=== PATIENT | male | born 1970 | race Caucasian/White ===

== ENCOUNTER 2020-06-03 11:44 | Outpatient (REF) | payer OTHER, SELFPAY ==
[2020-06-03 14:06] LABS: MANUAL DIFF FLAG NO
[2020-06-03 14:10] LABS: Basophils Percent Auto 0.5 % (0-2); Eosinophils Absolute Auto 0.1 X10*3/uL (0.0-0.4); Eosinophils Percent Auto 1.6 % (0-4); Hematocrit 42.4 % (42-52); Hemoglobin 14.3 g/dl (14.0-18.0); Imm Gran Abs Auto 0.02 X10*3/uL (0.00-0.03); Imm Gran Pct Auto 0.2 % (0.0-0.4); Lymphocytes Absolute Auto 2.3 X10*3/uL (1.2-4.9); Lymphocytes Percent Auto 27.5 % (20-40); Mean Corpuscular HGB Conc 33.7 g/dl (31.0-36.0); Mean Corpuscular Hemoglobin 29.1 pg (27.0-33.0); Mean Corpuscular Volume 86.4 fL (80-98); Monocytes Absolute Auto 0.5 X10*3/uL (0.1-1.2); Neutrophils Absolute Auto 5.3 X10*3/uL (2.0-8.3); Neutrophils Percent Auto 64.2 % (45-73); Platelet Count 294 X10*3/uL (160-400); Red Blood Count 4.91 X10*6/uL (4.60-5.80); Red Cell Distribution Width 12.7 % (11.0-16.0); White Blood Count 8.3 X10*3/uL (4.8-10.8)
[2020-06-03 14:51] LABS: Alanine Aminotransferase 19 U/L (0-40); Albumin Level 5.1 g/dL (3.5-5.0); Alkaline Phosphatase 67 U/L (39-117); Anion Gap 17 (12-20); Aspartate Amino Transferase 24 U/L (5-37); Bilirubin Total 1.2 mg/dL (0.0-1.0); Blood Urea Nitrogen 31 mg/dL (9-16); Calcium 9.7 mg/dL (8.4-10.2); Carbon Dioxide 25 mmol/L (22-29); Chloride 100 mmol/L (96-108); Cholesterol 264 mg/dL; Estimated Glomerular Filt Rate 45; Glucose Fasting 84 mg/dL (60-99); HDL Cholesterol 40 mg/dL; LDL Cholesterol Calculated 207 mg/dl; Potassium 4.7 mmol/l (3.3-5.1); Sodium 137 mmol/L (135-145); Total Protein 8.3 g/dL (6.5-8.0); Triglycerides 89 mg/dL
== END 2020-06-03 11:45 | disposition home or self-care (01) ==
LOC: HO.HMGCLDS 11:44
PROVIDERS: PCP Internal Medicine; Visit Provider Internal Medicine
DX: E78.2 Mixed hyperlipidemia (principal); I10 Essential (primary) hypertension
CPT/HCPCS: 36415; 80053; 80061; 85025

== ENCOUNTER 2020-06-10 10:49 | Outpatient (REF) | payer OTHER, SELFPAY ==
--- NOTE | 2020-06-10 11:11 | XR_ITS ---
EXAMINATION: XR KNEE, RIGHT CLINICAL INFORMATION: Right knee pain. COMPARISON: None TECHNIQUE: Four views of the right knee. FINDINGS: Mild tricompartmental degenerative joint changes are seen most pronounced in the medial femoral-tibial compartment. There is no acute fracture or dislocation. There is no joint effusion. Mild to moderate prepatellar soft tissue swelling is seen, most pronounced anterior to the patellar tendon. XR/XR knee RT 4V IMPRESSION: 1. Mild tricompartmental degenerative joint changes most consistent with osteoarthritis. 2. Mild to moderate prepatellar soft tissue swelling.
== END 2020-06-10 10:50 | disposition home or self-care (01) ==
LOC: HO.HMGCX 10:49
PROVIDERS: PCP Internal Medicine; Visit Provider Internal Medicine
DX: M25.561 Pain in right knee (principal)
CPT/HCPCS: 73564

== ENCOUNTER 2020-07-25 06:13 | Outpatient (REF) | payer OTHER, SELFPAY ==
[2020-07-25 11:53] LABS: Alanine Aminotransferase 15 U/L (0-40); Albumin Level 4.9 g/dL (3.5-5.0); Alkaline Phosphatase 63 U/L (39-117); Anion Gap 15 (12-20); Aspartate Amino Transferase 19 U/L (5-37); Blood Urea Nitrogen 19 mg/dL (9-16); Calcium 8.8 mg/dL (8.4-10.2); Carbon Dioxide 25 mmol/L (22-29); Chloride 103 mmol/L (96-108); Cholesterol 237 mg/dL; Estimated Glomerular Filt Rate 55; Glucose Fasting 90 mg/dL (60-99); HDL Cholesterol 33 mg/dL; LDL Cholesterol Calculated 165 mg/dl; Potassium 4.3 mmol/l (3.3-5.1); Sodium 139 mmol/L (135-145); Total Protein 7.9 g/dL (6.5-8.0); Triglycerides 197 mg/dL
== END 2020-07-25 06:14 | disposition home or self-care (01) ==
LOC: HO.HMGCLDS 06:13
PROVIDERS: PCP Internal Medicine; Visit Provider Internal Medicine
DX: E78.5 Hyperlipidemia, unspecified (principal); I10 Essential (primary) hypertension; Z00.00 Encounter for general adult medical examination without abnormal findings; Z53.20 Procedure and treatment not carried out because of patient's decision for unspecified reasons
CPT/HCPCS: 80048; 80053; 80061

== ENCOUNTER 2020-10-19 06:23 | Outpatient (REF) | payer OTHER, SELFPAY ==
[2020-10-19 11:59] LABS: Alanine Aminotransferase 20 U/L (0-40); Albumin Level 4.7 g/dL (3.5-5.0); Alkaline Phosphatase 66 U/L (39-117); Anion Gap 13 (12-20); Aspartate Amino Transferase 21 U/L (5-37); Bilirubin Total 1.2 mg/dL (0.0-1.0); Blood Urea Nitrogen 22 mg/dL (9-16); Calcium 9.3 mg/dL (8.4-10.2); Carbon Dioxide 26 mmol/L (22-29); Chloride 104 mmol/L (96-108); Cholesterol 169 mg/dL; Estimated Glomerular Filt Rate 57; Glucose Fasting 90 mg/dL (60-99); HDL Cholesterol 36 mg/dL; LDL Cholesterol Calculated 109 mg/dl; Potassium 3.6 mmol/L (3.3-5.1); Sodium 139 mmol/L (135-145); Total Protein 7.8 g/dL (6.5-8.0); Triglycerides 124 mg/dL
[2020-10-19 12:01] LABS: Prostate Specific Antigen Scr 0.24 ng/mL (<0.05-4.0)
== END 2020-10-19 06:24 | disposition home or self-care (01) ==
LOC: HO.HMGCLDS 06:23
PROVIDERS: PCP Internal Medicine; Visit Provider Internal Medicine
DX: Z00.00 Encounter for general adult medical examination without abnormal findings (principal); I10 Essential (primary) hypertension; E78.5 Hyperlipidemia, unspecified
CPT/HCPCS: 36415; 80053; 80061; 84153

== ENCOUNTER 2021-02-27 08:12 | Outpatient (REF) | payer OTHER, SELFPAY ==
[2021-02-27 11:41] LABS: Hematocrit 43.8 % (42-52); Hemoglobin 14.8 g/dl (14.0-18.0); Mean Corpuscular HGB Conc 33.8 g/dl (31.0-36.0); Mean Corpuscular Hemoglobin 29.1 pg (27.0-33.0); Mean Corpuscular Volume 86.1 fL (80-98); Mean Platelet Volume 10.6 fL (9.4-12.4); Platelet Count 270 X10*3/uL (160-400); Red Blood Count 5.09 X10*6/uL (4.60-5.80); Red Cell Distribution Width 13.2 % (11.0-16.0); White Blood Count 8.4 X10*3/uL (4.8-10.8)
[2021-02-27 11:51] LABS: Alanine Aminotransferase 24 U/L (0-40); Albumin Level 4.8 g/dL (3.5-5.0); Alkaline Phosphatase 67 U/L (39-117); Anion Gap 14 (12-20); Aspartate Amino Transferase 24 U/L (5-37); Bilirubin Total 0.8 mg/dL (0.0-1.0); Blood Urea Nitrogen 16 mg/dL (9-16); Calcium 9.9 mg/dL (8.4-10.2); Carbon Dioxide 28 mmol/L (22-29); Chloride 102 mmol/L (96-108); Cholesterol 226 mg/dL; Estimated Glomerular Filt Rate 54; Glucose Fasting 107 mg/dL (60-99); HDL Cholesterol 34 mg/dL; Potassium 4.2 mmol/L (3.3-5.1); Sodium 140 mmol/L (135-145); Total Protein 8.1 g/dL (6.5-8.0); Triglycerides 429 mg/dL
== END 2021-02-27 08:13 | disposition home or self-care (01) ==
LOC: HO.HMGCLDS 08:12
PROVIDERS: PCP Internal Medicine; Visit Provider Internal Medicine
DX: I10 Essential (primary) hypertension (principal); E78.5 Hyperlipidemia, unspecified
CPT/HCPCS: 36415; 80053; 80061; 85027

== ENCOUNTER 2021-05-31 06:06 | Outpatient (REF) | payer OTHER, SELFPAY ==
[2021-05-31 11:56] LABS: Cholesterol 159 mg/dL; HDL Cholesterol 29 mg/dL; LDL Cholesterol Calculated 95 mg/dl; Triglycerides 177 mg/dL
== END 2021-05-31 06:07 | disposition home or self-care (01) ==
LOC: HO.HMGCLDS 06:06
PROVIDERS: PCP Internal Medicine; Visit Provider Internal Medicine
DX: E78.5 Hyperlipidemia, unspecified (principal)
CPT/HCPCS: 36415; 80061

== ENCOUNTER 2021-09-01 14:54 | Outpatient (REF) | payer OTHER, SELFPAY ==
[2021-09-01 16:19] LABS: Appearance Urine CLEAR; Color Urine YELLOW; Glucose Urine UA NEG (NEG); Leukocyte Esterase Urine NEG (NEG); Nitrite Urine NEG (NEG); Specific Gravity - Urine 1.025 (1.005-1.025); Urine Blood NEG (NEG); Urine Ketones NEG (NEG); Urine Protein NEG (NEG-TRACE)
[2021-09-01 16:22] LABS: Hematocrit 42.4 % (42.0-52.0); Hemoglobin 14.2 g/dl (14.0-18.0); Mean Corpuscular HGB Conc 33.5 g/dl (31.0-36.0); Mean Corpuscular Hemoglobin 28.6 pg (27.0-33.0); Mean Corpuscular Volume 85.5 fL (80.0-98.0); Mean Platelet Volume 10.9 fL (9.4-12.4); Platelet Count 281 X10*3/uL (160-400); Red Blood Count 4.96 X10*6/uL (4.60-5.80); Red Cell Distribution Width 12.9 % (11.0-16.0); White Blood Count 9.2 X10*3/uL (4.8-10.8)
[2021-09-01 16:44] LABS: Alanine Aminotransferase 31 U/L (0-40); Albumin Level 4.9 g/dL (3.5-5.0); Alkaline Phosphatase 66 U/L (39-117); Anion Gap 15 (12-20); Aspartate Amino Transferase 25 U/L (5-37); Bilirubin Total 0.9 mg/dL (0.0-1.0); Blood Urea Nitrogen 28 mg/dL (9-16); Calcium 10.1 mg/dL (8.4-10.2); Carbon Dioxide 25 mmol/L (22-29); Chloride 102 mmol/L (96-108); Cholesterol 214 mg/dL; Estimated Glomerular Filt Rate 40; Glucose Random 86 mg/dL (60-115); HDL Cholesterol 30 mg/dL; LDL Cholesterol Calculated 113 mg/dl; Potassium 4.6 mmol/L (3.3-5.1); Sodium 137 mmol/L (135-145); Total Protein 8.4 g/dL (6.5-8.0); Triglycerides 358 mg/dL
[2021-09-01 17:06] LABS: Prostate Specific Antigen Scr 0.17 ng/mL (<0.05-4.0)
== END 2021-09-01 14:55 | disposition home or self-care (01) ==
LOC: HO.HMGCLDS 14:54
PROVIDERS: PCP Internal Medicine; Visit Provider Internal Medicine
DX: Z00.00 Encounter for general adult medical examination without abnormal findings (principal); Z12.5 Encounter for screening for malignant neoplasm of prostate; E78.5 Hyperlipidemia, unspecified; I10 Essential (primary) hypertension
CPT/HCPCS: 36415; 80053; 80061; 81003; 84153; 85027

== ENCOUNTER 2022-12-24 09:43 | Outpatient (REF) | payer BC, SELFPAY ==
[2022-12-24 11:22] LABS: MANUAL DIFF FLAG NO
[2022-12-24 11:26] LABS: Appearance Urine Clear; Color Urine Yellow; Glucose Urine UA Negative (Negative); Leukocyte Esterase Urine Negative (Negative); Nitrite Urine Negative (Negative); Urine Blood Negative (Negative); Urine Ketones Negative (Negative); Urine Protein Negative (Neg-Trace)
[2022-12-24 11:29] LABS: Bacteria Urine None Seen (None Seen); Hyaline Casts Urine 0-2 /LPF (0-2); RBC Urine 0-2 /HPF (0-2); Squamous Epithelial Cell Urine 0-2 /HPF (0-2); WBC Urine 0-5 /HPF (0-5)
[2022-12-24 11:35] LABS: Basophils Absolute Auto 0.1 X10*3/uL (0.0-0.2); Basophils Percent Auto 0.7 % (0-2); Eosinophils Absolute Auto 0.2 X10*3/uL (0.0-0.4); Eosinophils Percent Auto 3.1 % (0-4); Hematocrit 41.8 % (42.0-52.0); Hemoglobin 14.2 g/dl (14.0-18.0); Lymphocytes Percent Auto 29.4 % (20-40); Mean Corpuscular Hemoglobin 28.3 pg (27.0-33.0); Mean Corpuscular Volume 83.3 fL (80.0-98.0); Mean Platelet Volume 10.4 fL (9.4-12.4); Monocytes Absolute Auto 0.4 X10*3/uL (0.1-1.2); Monocytes Percent Auto 5.8 % (2-11); Neutrophils Absolute Auto 4.1 x10*3/uL (2.0-8.3); Platelet Count 243 X10*3/uL (160-400); Red Blood Count 5.02 X10*6/uL (4.60-5.80); White Blood Count 6.7 X10*3/uL (4.8-10.8)
[2022-12-24 11:55] LABS: Alanine Aminotransferase 18 U/L (0-40); Albumin Level 4.4 g/dL (3.5-5.0); Alkaline Phosphatase 72 U/L (39-117); Anion Gap 10 (12-20); Aspartate Amino Transferase 17 U/L (5-37); Bilirubin Total 1.1 mg/dL (0.0-1.0); Blood Urea Nitrogen 14 mg/dL (9-16); Calcium 9.6 mg/dL (8.4-10.2); Carbon Dioxide 29 mmol/L (22-29); Chloride 105 mmol/L (96-108); Cholesterol 171 mg/dL; Estimated Glomerular Filt Rate > 60; Glucose Fasting 98 mg/dL (60-99); HDL Cholesterol 30 mg/dL; LDL Cholesterol Calculated 99 mg/dl; Potassium 4.3 mmol/L (3.3-5.1); Sodium 140 mmol/L (135-145); Total Protein 7.1 g/dL (6.5-8.0); Triglycerides 210 mg/dL
== END 2022-12-24 09:44 | disposition home or self-care (01) ==
LOC: HO.HMGCLDS 09:43
PROVIDERS: PCP Internal Medicine; Visit Provider Internal Medicine
DX: Z00.00 Encounter for general adult medical examination without abnormal findings (principal); Z12.5 Encounter for screening for malignant neoplasm of prostate; E78.5 Hyperlipidemia, unspecified; I10 Essential (primary) hypertension
CPT/HCPCS: 36415; 80053; 80061; 81001; 84153; 85025

== ENCOUNTER 2023-09-13 10:23 | Outpatient (REF) | payer BC, SELFPAY ==
[2023-09-13 13:08] LABS: MANUAL DIFF FLAG NO
[2023-09-13 13:43] LABS: Basophils Percent Auto 0.5 % (0-2); Eosinophils Absolute Auto 0.1 X10*3/uL (0.0-0.4); Eosinophils Percent Auto 1.7 % (0-4); Hematocrit 45.2 % (42.0-52.0); Hemoglobin 15.3 g/dl (14.0-18.0); Imm Gran Abs Auto 0.02 X10*3/uL (0.00-0.03); Imm Gran Pct Auto 0.3 % (0.0-0.4); Lymphocytes Absolute Auto 2.6 X10*3/uL (1.2-4.9); Mean Corpuscular HGB Conc 33.8 g/dl (31.0-36.0); Mean Corpuscular Hemoglobin 28.6 pg (27.0-33.0); Mean Corpuscular Volume 84.5 fL (80.0-98.0); Mean Platelet Volume 11.3 fL (9.4-12.4); Monocytes Absolute Auto 0.5 X10*3/uL (0.1-1.2); Monocytes Percent Auto 6.5 % (2-11); Neutrophils Absolute Auto 4.2 x10*3/uL (2.0-8.3); Platelet Count 254 X10*3/uL (160-400); Red Blood Count 5.35 X10*6/uL (4.60-5.80); Red Cell Distribution Width 13.4 % (11.0-16.0); White Blood Count 7.5 X10*3/uL (4.8-10.8)
[2023-09-13 14:12] LABS: Alanine Aminotransferase 21 U/L (0-40); Albumin Level 4.7 g/dL (3.5-5.0); Alkaline Phosphatase 69 U/L (39-117); Anion Gap 14 (12-20); Aspartate Amino Transferase 25 U/L (5-37); Bilirubin Total 1.2 mg/dL (0.0-1.0); Blood Urea Nitrogen 31 mg/dL (9-16); Calcium 9.7 mg/dL (8.4-10.2); Carbon Dioxide 25 mmol/L (22-29); Chloride 104 mmol/L (96-108); Cholesterol 192 mg/dL (<200); Estimated Glomerular Filt Rate 55; Glucose Fasting 91 mg/dL (60-99); HDL Cholesterol 37 mg/dL (>40); LDL Cholesterol Calculated 137 mg/dL (<100); Potassium 3.8 mmol/L (3.3-5.1); Sodium 139 mmol/L (135-145); Total Protein 8.1 g/dL (6.5-8.0); Triglycerides 93 mg/dL (<150)
== END 2023-09-13 10:24 | disposition home or self-care (01) ==
LOC: HO.HMGCLNP 10:23
PROVIDERS: PCP Internal Medicine; Visit Provider Internal Medicine
DX: E78.5 Hyperlipidemia, unspecified (principal); I10 Essential (primary) hypertension
CPT/HCPCS: 80053; 80061; 85025

== ENCOUNTER 2023-09-16 07:44 | Outpatient (AMB) | payer BC, SELFPAY ==
--- NOTE | 2023-09-16 08:09 | MHC.PC.OV ---
Vital Signs 09/16/23 08:10 Height 5 ft 6 in Weight 214 lb BMI 34.5 BP 130/82 Blood Pressure Location Lt brachial Position Sitting Pulse 71 Pulse Source Pulse Oximeter Pulse Oximetry (%) 99 Oxygen Delivery Method Room Air Intake Visit Reasons: Annual PE Intake Note: Pt is here today for PE. Allergies No Known Allergies Allergy (Verified 09/16/23 08:13) Medication List - Last Reconciled 09/16/23 by Rowena Barnes MD amlodipine 10 mg PO DAILY lisinopril 20 mg PO DAILY lisinopril-hydrochlorothiazide 20-25 mg 1 tab PO DAILY metoprolol succinate ER 100 mg PO DAILY pravastatin 20 mg PO DAILY Tobacco use date assessed: 09/16/23 Dental Screening Dental Screen Date: 09/16/23 Did you have a dental visit in the last 12 months?: Yes Did you have a dental problem in the last 6 months where you did not have access to dental care?: No Was dental information given to patient?: Patient has dentist HPI Annual PE HPI Details Pt presents for PE. PFS Medical History (Updated 09/16/23 @ 08:36 by Rowena Barnes MD) Colonoscopy refused Annual physical exam Hyperlipemia Knee pain HTN (hypertension) Nephrolithiasis Surgical History History of appendectomy Family History Father HTN (hypertension) Mother HTN (hypertension) Social History Housing: House Alcohol intake: current Alcohol intake frequency: holidays/special occasions only Patient Tobacco Use Status: Never used Tobacco e-Cigarette/Vaping Use: Never Used Current occupational status: employed Cognitive needs: No Hearing needs: No Vision needs: No Questionnaire PHQ-9 Over the last 2 weeks, how often have you been bothered by any of the following problems? 1. Little interest or pleasure in doing things: not at all 2. Feeling down, depressed, or hopeless: not at all 3. Trouble falling or staying asleep, or sleeping too much: not at all 4. Feeling tired or having little energy: not at all 5. Poor appetite or overeating: not at all 6. Feeling bad about yourself - or that you are a failure or have let yourself or your family down: not at all 7. Trouble concentrating on things, such as reading the newspaper or watching television: not at all 8. Moving or speaking so slowly that other people could have noticed. Or the opposite - being so fidgety or restless that you have been moving around a lot more than usual: not at all 9. Thoughts that you would be better off or of hurting yourself in some way: not at all Total score: 0 Depression Screening Interpretation: Negative Depression Screening Done: Yes Source: Developed by Drs. Rocky Bocanegra, Tonie Valdovinos, Bryce Polanco and colleagues, with an educational hernandez from [employer]. Thrive Questionnaire Date Thrive assessed: 12/26/22 AUDIT C Alcohol Use Questionnaire (AUDIT-C) 1. How often do you have a drink containing alcohol?: Never 3. How often do you have six or more drinks on one occasion?: Never Total Score: 0 HUGO-7 AMB Questionnaire HUGO-7 Date HUGO - 7 assessed: 09/16/23 Feeling nervous, anxious, or on edge: 0 = Not at all Not being able to stop or control worryin = Not at all Worrying too much about different things: 0 = Not at all Trouble relaxin = Not at all Being so restless that it is hard to sit still: 0 = Not at all Becoming easily annoyed or irritable: 0 = Not at all Feeling afraid as if something awful might happen: 0 = Not at all Total HUGO-7 score (0-4 normal; 5-9 mild; 10-14 moderate; 15-21 severe): 0 Source: Developed by Drs. Rocky Bocanegra, Tonie Valdovinos, Bryce Polanco and colleagues, with an educational hernandez from [employer]. Review of Systems Const All systems reviewed & are unremarkable except as noted in HPI and below Reports no additional complaints Eyes Reports no additional complaints ENT Reports no additional complaints Card Reports no additional complaints Resp Reports no additional complaints GI Reports no additional complaints Reports no additional complaints Physical exam (Primary Care) Vital Signs: Last Vital Signs Pulse 71 09/16/23 08:10 BP 130/82 09/16/23 08:10 Pulse Ox 99 09/16/23 08:10 Oxygen Delivery Method Room Air 09/16/23 08:10 BMI result Body Mass Index 34.5 Tobacco/Smoking Status: Tobacco use Status Tobacco use date assessed 09/16/23 09/16/23 08:17 Patient Tobacco Use Status Never used Tobacco 09/16/23 08:17 e-Cigarette/Vaping Use Never Used 09/16/23 08:09 PHQ-9: PHQ-9 Score PHQ-9: Total score 0 09/16/23 08:17 Depression Screening Interpretation: Negative Thrive Assessment: Date of Thrive Assessment Date Thrive assessed 12/26/22 09/16/23 08:09 Const General: no acute distress HENMT Head: Yes normal to inspection Ears: hearing grossly normal bilaterally Face and sinus: Yes normal facial exam Mouth: Normal oral and palatal mucosa present Throat: Yes posterior oropharynx normal Eyes General: appearance normal, both eyes and all related structures Neck Neck: Yes no lymphadenopathy and Yes supple Resp Effort & Inspection: normal respiratory effort Auscultation: clear to auscultation bilaterally Cardio Rhythm: regular rhythm Heart sounds: S1 normal heart sound present, S2 normal heart sound present and Murmur heart sound present systolic II/ GI Inspection: Yes normal to inspection Palpation (GI): Soft to palpation Percussion: Yes normal to percussion Auscultation: normal bowel sounds Assessment and Plan Assessment & Plan (1) Annual physical exam: Code(s): Z00.00 - Encounter for general adult medical examination without abnormal findings Plan: WELL-BALANCED DIET REGULAR PHYSICAL ACTIVITY DISCUSSED WITH THE PATIENT. HE HAD NEGATIVE COLOGUARD LAST YEAR (2) HTN (hypertension): Comment: BP goal less than 130/80 Code(s): I10 - Essential (primary) hypertension Plan: Continue current medications increase physical activity low-sodium diet, follow-up in 6 months (3) Heart murmur: Code(s): R01.1 - Cardiac murmur, unspecified Plan: Obtain echocardiogram to evaluate Orders: Orders Comprehensive [place]. Panel Fast 6 Months I10 - Essential (primary) hypertension, R01.1 - Cardiac murmur, unspecified, Z00.00 - Encounter for general adult medical examination without abnormal findings UA w Microscopic 6 Months I10 - Essential (primary) hypertension, R01.1 - Cardiac murmur, unspecified, Z00.00 - Encounter for general adult medical examination without abnormal findings PSA,Total (Free>4and<10) 6 Months I10 - Essential (primary) hypertension, R01.1 - Cardiac murmur, unspecified, Z00.00 - Encounter for general adult medical examination without abnormal findings Lipid Panel 6 Months I10 - Essential (primary) hypertension, R01.1 - Cardiac murmur, unspecified, Z00.00 - Encounter for general adult medical examination without abnormal findings CA echo transthoracic complete Today R01.1 - Cardiac murmur, unspecified Medications: Refilled amlodipine 10 mg PO DAILY 90 tabs 3RF pravastatin 20 mg PO DAILY 90 tabs 3RF lisinopril Take with lisinopril with hydrochlorothiazide 20/25 20 mg PO DAILY 90 tabs 3RF lisinopril-hydrochlorothiazide 20-25 mg take with Lisinopril 20 mg 1 tab PO DAILY 90 tabs 3RF metoprolol succinate ER 100 mg PO DAILY 90 tabs 3RF Coding Level of Care Code Est Pt Prev Care 40-64y(55506) Diagnoses Annual physical exam Z00.00 HTN (hypertension) I10 Heart murmur R01.1
[2023-09-16 08:10] VITALS: BP 130/82; PULSE 71; O2SAT 99; BMI 34.5
== END 2023-09-16 08:56 | disposition home or self-care (01) ==
PROVIDERS: PCP Internal Medicine; Visit Provider Internal Medicine
DX: Z00.00 Encounter for general adult medical examination without abnormal findings (principal); I10 Essential (primary) hypertension; R01.1 Cardiac murmur, unspecified
CPT/HCPCS: 99396

== ENCOUNTER 2023-12-13 09:26 | Outpatient (AMB) | payer BC, SELFPAY ==
--- NOTE | 2023-12-13 09:27 | A.OFFPC_ITS ---
Vital Signs 12/13/23 09:30 Height 5 ft 6 in Weight 214 lb BMI 34.5 BP 134/80 Blood Pressure Location Lt brachial Position Sitting Pulse 74 Pulse Source Pulse Oximeter Pulse Oximetry (%) 97 Oxygen Delivery Method Room Air Intake Visit Reasons: chronic cough Intake Note: Pt is here today for a sick visit. Pt c/o swelling in his lower legs. Allergies No Known Allergies Allergy (Verified 12/13/23 09:31) Medication List - Last Reconciled 12/13/23 by Rowena Barnes MD amlodipine 5 mg (1/2 x 10 mg) PO DAILY lisinopril 20 mg PO DAILY lisinopril-hydrochlorothiazide 20-25 mg 1 tab PO DAILY metoprolol succinate ER 100 mg PO DAILY pravastatin 20 mg PO DAILY triamterene 50 mg PO DAILY Tobacco use date assessed: 12/13/23 Dental Screening Dental Screen Date: 09/16/23 HPI chronic cough HPI Details Pt patient presents complaining of lower extremities swelling worse at the end of the day since he started working more hours, sitting or standing for prolonged time. He denies dyspnea on exertion PND orthopnea wheezing. patient has intermittent chronic dry cough, tickle like in the back of his throat very rarely. [facility] Medical History Colonoscopy refused Annual physical exam Hyperlipemia Knee pain HTN (hypertension) Nephrolithiasis Surgical History History of appendectomy Family History Father HTN (hypertension) Mother HTN (hypertension) Social History Housing: House Alcohol intake: current Alcohol intake frequency: holidays/special occasions only Patient Tobacco Use Status: Never used Tobacco e-Cigarette/Vaping Use: Never Used service: No Current occupational status: employed Cognitive needs: No Hearing needs: No Vision needs: No Questionnaire Thrive Questionnaire Date Thrive assessed: 12/26/22 HUGO-7 AMB Questionnaire HUGO-7 Date HUGO - 7 assessed: 09/16/23 Source: Developed by Drs. Rocky Bocanegra, Tonie Valdovinos, Bryce Polanco and colleagues, with an educational hernandez from [employer]. Review of Systems Const All systems reviewed & are unremarkable except as noted in HPI and below Reports no additional complaints Eyes Reports no additional complaints ENT Reports no additional complaints Card Reports no additional complaints Resp Reports no additional complaints GI Reports no additional complaints Reports no additional complaints Physical exam (Primary Care) Vital Signs: Last Vital Signs Pulse 74 12/13/23 09:30 BP 134/80 12/13/23 09:30 Pulse Ox 97 12/13/23 09:30 Oxygen Delivery Method Room Air 12/13/23 09:30 BMI result Body Mass Index 34.5 Tobacco/Smoking Status: Tobacco use Status Tobacco use date assessed 12/13/23 12/13/23 09:33 Patient Tobacco Use Status Never used Tobacco 12/13/23 09:33 e-Cigarette/Vaping Use Never Used 12/13/23 09:33 Thrive Assessment: Date of Thrive Assessment Date Thrive assessed 12/26/22 12/13/23 09:33 Const General: no acute distress HENMT Head: Yes normal to inspection Ears: hearing grossly normal bilaterally Mouth: Normal oral and palatal mucosa present Throat: Yes posterior oropharynx normal Neck Neck: Yes supple Resp Effort & Inspection: normal respiratory effort Auscultation: clear to auscultation bilaterally Cardio Rhythm: regular rhythm Heart sounds: S1 normal heart sound present and S2 normal heart sound present GI Inspection: Yes normal to inspection Palpation (GI): Soft to palpation Percussion: Yes normal to percussion Auscultation: normal bowel sounds Assessment and Plan Assessment & Plan (1) HTN (hypertension): Comment: BP goal less than 130/80 Code(s): I10 - Essential (primary) hypertension Plan: Patient has lower extremity edema most likely secondary to high dose of amlodipine. He will decrease amlodipine to 5 mg a day and triamterene 50 mg will be added to his medications. Electrolytes will be checked in 1 week. Patient will follow-up in 1 month (2) Hyperlipemia: Code(s): E78.5 - Hyperlipidemia, unspecified Plan: Continue pravastatin (3) Dry cough: Code(s): R05.8 - Other specified cough Plan: Most likely secondary to PHAN inhibitor but patient does not want to change lisinopril to ARB Orders: Orders Basic Metabolic Panel 1 Week Medications: New triamterene 50 mg PO DAILY 30 caps 0RF Changed From amlodipine 10 mg PO DAILY 90 tabs 3RF To amlodipine 5 mg (1/2 x 10 mg) PO DAILY 90 tabs 3RF Coding Level of Care Code Est Pt Level 4 (70931) Diagnoses HTN (hypertension) I10 Hyperlipemia E78.5 Dry cough R05.8
[2023-12-13 09:30] VITALS: BP 134/80; PULSE 74; O2SAT 97; BMI 34.5
== END 2023-12-13 13:23 | disposition home or self-care (01) ==
PROVIDERS: PCP Internal Medicine; Visit Provider Internal Medicine
DX: I10 Essential (primary) hypertension (principal); E78.5 Hyperlipidemia, unspecified; R05.8 Other specified cough
CPT/HCPCS: 99214

== ENCOUNTER 2023-12-30 06:11 | Outpatient (REF) | payer BC, SELFPAY ==
[2023-12-30 10:51] LABS: Anion Gap 15 (12-20); Blood Urea Nitrogen 23 mg/dL (9-16); Calcium 9.5 mg/dL (8.4-10.2); Carbon Dioxide 23 mmol/L (22-29); Chloride 106 mmol/L (96-108); Estimated Glomerular Filt Rate 53; Glucose Random 103 mg/dL (60-115); Potassium 4.4 mmol/L (3.3-5.1); Sodium 140 mmol/L (135-145)
== END 2023-12-30 06:12 | disposition home or self-care (01) ==
LOC: HO.HMGCLDS 06:11
PROVIDERS: PCP Internal Medicine; Visit Provider Internal Medicine
DX: Z13.89 Encounter for screening for other disorder (principal)
CPT/HCPCS: 36415; 80048

== ENCOUNTER 2024-01-07 10:03 | Outpatient (AMB) | payer BC, SELFPAY ==
--- NOTE | 2024-01-07 10:14 | MHC.PC.OV ---
Vital Signs 01/07/24 10:21 Height 5 ft 6 in Weight 215 lb BMI 34.7 BP 130/82 Blood Pressure Location Lt brachial Position Sitting Pulse 73 Pulse Source Pulse Oximeter Pulse Oximetry (%) 100 Oxygen Delivery Method Room Air Intake Visit Reasons: follow up Intake Note: Pt is here today for a follow up visit on HTN med change and labs. Allergies No Known Allergies Allergy (Verified 01/07/24 10:21) Medication List - Last Reconciled 01/07/24 by Rowena Barnes MD amlodipine 5 mg (1/2 x 10 mg) PO DAILY lisinopril 20 mg PO DAILY lisinopril-hydrochlorothiazide 20-25 mg 1 tab PO DAILY metoprolol succinate ER 100 mg PO DAILY pravastatin 20 mg PO DAILY triamterene 50 mg PO DAILY Tobacco use date assessed: 01/07/24 Dental Screening Dental Screen Date: 09/16/23 HPI follow up HPI Details Patient presents for the follow-up of hypertension and hyperlipidemia. He noticed decreased lower extremity swelling since started taking 5 mg of amlodipine. [facility] Medical History Colonoscopy refused Annual physical exam Hyperlipemia Knee pain HTN (hypertension) Nephrolithiasis Surgical History History of appendectomy Family History Father HTN (hypertension) Mother HTN (hypertension) Social History Housing: House Alcohol intake: current Alcohol intake frequency: holidays/special occasions only Patient Tobacco Use Status: Never used Tobacco e-Cigarette/Vaping Use: Never Used service: No Current occupational status: employed Cognitive needs: No Hearing needs: No Vision needs: No Questionnaire Thrive Questionnaire Date Thrive assessed: 12/26/22 HUGO-7 AMB Questionnaire HUGO-7 Date HUGO - 7 assessed: 09/16/23 Source: Developed by Drs. Rocky Bocanegra, Tonie Valdovinos, Bryce Polanco and colleagues, with an educational hernandez from [employer]. Review of Systems Const All systems reviewed & are unremarkable except as noted in HPI and below Card Reports no additional complaints GI Reports no additional complaints Physical exam (Primary Care) Vital Signs: Last Vital Signs Pulse 73 01/07/24 10:21 BP 140/82 H 01/07/24 10:21 Pulse Ox 100 01/07/24 10:21 Oxygen Delivery Method Room Air 01/07/24 10:21 BMI result Body Mass Index 34.7 Tobacco/Smoking Status: Tobacco use Status Tobacco use date assessed 01/07/24 01/07/24 10:21 Patient Tobacco Use Status Never used Tobacco 01/07/24 10:15 e-Cigarette/Vaping Use Never Used 01/07/24 10:15 Thrive Assessment: Date of Thrive Assessment Date Thrive assessed 12/26/22 01/07/24 10:15 Const General: no acute distress HENMT Head: Yes normal to inspection Face and sinus: Yes normal facial exam Throat: Yes posterior oropharynx normal Neck Neck: Yes supple Resp Effort & Inspection: normal respiratory effort Auscultation: clear to auscultation bilaterally Cardio Rhythm: regular rhythm Heart sounds: S1 normal heart sound present and S2 normal heart sound present GI Inspection: Yes normal to inspection Assessment and Plan Assessment & Plan (1) HTN (hypertension): Comment: 10 mg of amlodipine cause leg edema Code(s): I10 - Essential (primary) hypertension Plan: Change metoprolol to bisoprolol 10 mg and continue the rest of the medications. Low-sodium diet regular physical activity discussed with the patient. Sleep study was recommended to rule out obstructive sleep apnea but patient declined. Return in March (2) Hyperlipemia: Code(s): E78.5 - Hyperlipidemia, unspecified Plan: Continue statin Medications: New amlodipine 5 mg PO DAILY 90 tabs 3RF bisoprolol fumarate 10 mg PO DAILY 90 tabs 2RF Discontinued amlodipine Discontinued Reason: Doctor's Order 5 mg (1/2 x 10 mg) PO DAILY 90 tabs 3RF metoprolol succinate ER Discontinued Reason: Doctor's Order 100 mg PO DAILY 90 tabs 3RF Coding Level of Care Code Est Pt Level 4 (98193) Diagnoses HTN (hypertension) I10 Hyperlipemia E78.5
[2024-01-07 10:21] VITALS: BP 130/82; PULSE 73; O2SAT 100; BMI 34.7
== END 2024-01-07 10:59 | disposition home or self-care (01) ==
PROVIDERS: PCP Internal Medicine; Visit Provider Internal Medicine
DX: I10 Essential (primary) hypertension (principal); E78.5 Hyperlipidemia, unspecified
CPT/HCPCS: 99214

== ENCOUNTER → 2024-02-17 08:45 | Outpatient (REF) | payer BC, SELFPAY ==
--- NOTE | 2024-02-17 08:48 | CA_ITS ---
Transthoracic Echocardiogram Patient (Last, First, Middle): Amador Marie, Gender: Male Date of : 1970 Age: 53 Procedure Date: 02/17/2024 Procedure Type: Transthoracic Echocardiogram Location: OP Height: 167.64 cm Weight: 97.52 kg BSA: 2.06 m2 Heart Rate: bpm BP: 150 / 86 mmHg Door Hanger: PEÑA Referring MD: Rowena Barnes MD Symptoms: R01.1 - Cardiac murmur, unspecified Study Quality: Adequate ECG Rhythm: Sinus Conclusions: - The left ventricular systolic function is normal. The calculated ejection fraction is 59% by biplane method. - No obvious valvular pathology seen on this study. Findings Left Ventricle Normal left ventricular cavity size. There is mildly increased left ventricular wall thickness. The left ventricular systolic function is normal. The calculated ejection fraction is 59% by biplane method. There is no evidence of regional wall motion abnormalities. Evidence suggests grade I (mild) diastolic dysfunction. Right Ventricle Normal right ventricular cavity size and systolic function. Atria Both atria are normal in size. Aortic Valve There is a normal trileaflet aortic valve. There is mild calcification of the aortic valve. There is no aortic valve stenosis. There is no aortic valve regurgitation. Mitral Valve The mitral valve appears normal. There is no mitral valve regurgitation. There is no mitral valve stenosis. Pulmonic Valve The pulmonic valve is likely normal. Tricuspid Valve There is trace tricuspid valve regurgitation. There is no evidence of pulmonary hypertension. Great Vessels The asc aorta and aortic arch are normal in size. Venous The inferior vena cava is normal in size and collapses greater than 50% with inspiration. Pericardium/Pleural There is no evidence of pericardial effusion. Prior Study Comparison No prior study available for comparison. Recommendations, Care & Conclusions No obvious valvular pathology seen on this study. Measurements 2D Linear Measurements IVSd: 1.22 0.6-0.9/0.6-1.0 cm LVIDd: 4.70 3.9-5.3/4.2-5.9 cm LVIDd Index: 2.28 2.4-3.2/2.2-3.1 cm/m2 LVIDs: 2.88 2.0-3.6 cm LVPWd: 1.08 0.7-1.1 cm LA Diam: 4.70 2.7-3.8/3.0-4.0 cm LAIDs Index: 2.28 1.5-2.3 cm/m2 LV Mass: 248.74 67-162/88-224 g LV Mass Index: 120.75 43-95/49-115 g/m2 LVOT Diam: 2.20 3.0+(-)1.3 cm 2D Systolic Function EF 4C: 55.80 >55% EF 2C: 64.10 >55% EF BiP: 58.90 >55% Mitral Valve MV Pk E: 0.70 MV PK A: 0.88 MV Decel Time: 262.00 E/A: 0.80 E'Lateral: 7.07 E'Medial: 5.98 E/E' Med: 11.80 E/E' Lat: 9.90 PHT: 77.00 MVA PHT: 2.86 Decel [place]: 2.68 Aortic Valve AoV Pk Carlos Alberto: 1.78 AoV Mn Carlos Alberto: 1.23 AoV VTI: 0.37 AoV Pk Grad: 13.00 Aov Mn Grad: 7.00 AMANDA Cont.VTI: 2.49 LVOT LVOT Pk Carlos Alberto: 1.04 LVOT Mn Carlos Alberto: 0.70 LVOT VTI: 0.24 LVOT Pk Grad: 4.00 LVOT Mn Grad: 2.00 LVOT Diam: 2.20 LVOT Area: 3.80 Diastolic Function MV Pk E: 0.70 MV Pk A: 0.88 E/A: 0.80 E'Medial: 5.98 E/E' Med: 11.80 E' Laterial: 7.07 E/E' Lat: 9.90 Right Ventricle TAPSE (mm): 25.30 TVS' Carlos Alberto: 14.30 Tricuspid Valve TR Pk Carlos Alberto: 2.13 TR Pk Grad: 18.00 RA Press: 3.00 RVSP: 21.00 Great Vessels Aorta Sinus of Valsalva: 3.44 2.0-3.[address] [place]: 2.52 1.7-3.4 cm Ao Asc: 3.40 2.1-3.4 cm Ao Arch: 3.00 Updated in Other Vendor System with Status of Final Wicho Mistry MD electronically signed on 02/17/2024 12:31:23 PM with status of Final
== END ==
LOC: HO.CARD 08:45
PROVIDERS: PCP Internal Medicine; Visit Provider Internal Medicine
DX: R01.1 Cardiac murmur, unspecified (principal)
CPT/HCPCS: 93306

== ENCOUNTER → 2024-02-17 08:48 | Outpatient (BNV) | payer BC, SELFPAY | PROVIDERS: PCP Internal Medicine; Visit Provider Internal Medicine | DX: I35.8 Other nonrheumatic aortic valve disorders (principal); I51.89 Other ill-defined heart diseases | CPT/HCPCS: 93306 ==

== ENCOUNTER 2024-06-18 06:21 | Outpatient (REF) | payer BC, SELFPAY ==
[2024-06-18 10:36] LABS: Appearance Urine Clear; Color Urine Yellow; Glucose Urine UA Negative (Negative); Leukocyte Esterase Urine Negative (Negative); Nitrite Urine Negative (Negative); Specific Gravity - Urine 1.015 (1.005-1.025); Urine Blood Negative (Negative); Urine Ketones Negative (Negative); Urine Protein Negative (Neg-Trace)
[2024-06-18 10:45] LABS: Bacteria Urine None Seen (None Seen); Hyaline Casts Urine 0-2 /LPF (0-2); RBC Urine 0-2 /HPF (0-2); Squamous Epithelial Cell Urine 0-2 /HPF (0-2); WBC Urine 0-5 /HPF (0-5)
[2024-06-18 11:10] LABS: Alanine Aminotransferase 47 U/L (0-40); Albumin Level 4.5 g/dL (3.5-5.0); Alkaline Phosphatase 62 U/L (39-117); Anion Gap 13 (12-20); Aspartate Amino Transferase 37 U/L (5-37); Blood Urea Nitrogen 19 mg/dL (9-16); Calcium 9.8 mg/dL (8.4-10.2); Carbon Dioxide 24 mmol/L (22-29); Chloride 106 mmol/L (96-108); Cholesterol 213 mg/dL (<200); Estimated Glomerular Filt Rate 54; Glucose Fasting 109 mg/dL (60-99); HDL Cholesterol 33 mg/dL (>40); LDL Cholesterol Calculated 122 mg/dL (<100); Sodium 139 mmol/L (135-145); Total Protein 7.8 g/dL (6.5-8.0); Triglycerides 292 mg/dL (<150)
[2024-06-18 11:13] LABS: PSA,Total (Free>4and<10) 0.17 ng/mL (0.00-4.00)
== END 2024-06-18 06:22 | disposition home or self-care (01) ==
LOC: HO.HMGCLDS 06:21
PROVIDERS: PCP Internal Medicine; Visit Provider Internal Medicine
DX: Z00.00 Encounter for general adult medical examination without abnormal findings (principal); I10 Essential (primary) hypertension; R01.1 Cardiac murmur, unspecified; Z12.5 Encounter for screening for malignant neoplasm of prostate
CPT/HCPCS: 36415; 80053; 80061; 81001; 84153

== ENCOUNTER 2024-06-22 09:53 | Outpatient (AMB) | payer BC, SELFPAY ==
[2024-06-22 10:20] VITALS: BP 138/86; PULSE 78; O2SAT 96; BMI 35.5
--- NOTE | 2024-06-22 10:20 | A.OFFPC_ITS ---
Vital Signs 06/22/24 10:20 Height 5 ft 6 in Weight 220 lb BMI 35.5 BP 138/86 Blood Pressure Location Lt brachial Position Sitting Pulse 78 Pulse Source Pulse Oximeter Pulse Oximetry (%) 96 Oxygen Delivery Method Room Air Intake Visit Reasons: 6th month follow up Intake Note: Pt is here today for 6 months follow up visit on labs. Allergies No Known Allergies Allergy (Verified 01/07/24 10:21) Medication List - Last Reconciled 06/22/24 by Rowena Barnes MD amlodipine 5 mg PO DAILY bisoprolol fumarate 10 mg PO DAILY lisinopril 20 mg PO DAILY lisinopril-hydrochlorothiazide 20-25 mg 1 tab PO DAILY pravastatin 20 mg PO DAILY triamterene 50 mg PO DAILY Tobacco use date assessed: 06/22/24 Dental Screening Dental Screen Date: 09/16/23 HPI 6th month follow up HPI Details Patient presents for the follow-up on hypertension and hyperlipidemia. Patient gained 10 lb and has not been exercising regularly but is physically active at work. [facility] Medical History Colonoscopy refused Annual physical exam Hyperlipemia Knee pain HTN (hypertension) Nephrolithiasis Surgical History History of appendectomy Family History Father HTN (hypertension) Mother HTN (hypertension) Social History Housing: House Alcohol intake: current Alcohol intake frequency: holidays/special occasions only Patient Tobacco Use Status: Never used Tobacco e-Cigarette/Vaping Use: Never Used service: No Current occupational status: employed Cognitive needs: No Hearing needs: No Vision needs: No Questionnaire Thrive Questionnaire Date Thrive assessed: 12/26/22 HUGO-7 AMB Questionnaire HUGO-7 Date HUGO - 7 assessed: 09/16/23 Source: Developed by Drs. Rocky Bocanegra, Tonie Valdovinos, Bryce Polanco and colleagues, with an educational hernandez from [employer]. Review of Systems Const All systems reviewed & are unremarkable except as noted in HPI and below ENT Reports no additional complaints Card Reports no additional complaints Resp Reports no additional complaints GI Reports no additional complaints Physical exam (Primary Care) Vital Signs: Last Vital Signs Pulse 78 06/22/24 10:20 BP 138/86 06/22/24 10:20 Pulse Ox 96 06/22/24 10:20 Oxygen Delivery Method Room Air 06/22/24 10:20 BMI result Body Mass Index 35.5 Tobacco/Smoking Status: Tobacco use Status Tobacco use date assessed 06/22/24 06/22/24 10:49 Patient Tobacco Use Status Never used Tobacco 06/22/24 10:21 e-Cigarette/Vaping Use Never Used 06/22/24 10:21 Thrive Assessment: Date of Thrive Assessment Date Thrive assessed 12/26/22 06/22/24 10:21 Const General: no acute distress HENMT Face and sinus: Yes normal facial exam Neck Neck: Yes supple Resp Effort & Inspection: normal respiratory effort Auscultation: clear to auscultation bilaterally Cardio Rhythm: regular rhythm Heart sounds: S1 normal heart sound present and S2 normal heart sound present GI Inspection: Yes normal to inspection Palpation (GI): Soft to palpation Coding Level of Care Code Est Pt Level 3 (39114) Diagnoses HTN (hypertension) I10 Hyperlipemia E78.5 Assessment & Plan Assessment & Plan (1) HTN (hypertension): Comment: 10 mg of amlodipine cause leg edema Code(s): I10 - Essential (primary) hypertension Category: Medical Plan: Continue current medications decrease caloric intake increase physical activity discussed with the patient. (2) Hyperlipemia: Code(s): E78.5 - Hyperlipidemia, unspecified Category: Medical Plan: Continue statin follow-up in 3 months for physical with a fasting labs before Orders: Orders Comprehensive [place]. Panel Fast 3 Months E78.5 - Hyperlipidemia, unspecified, I10 - Essential (primary) hypertension TSH reflex Free T4 3 Months E78.5 - Hyperlipidemia, unspecified, I10 - Essential (primary) hypertension Complete Blood Count Auto Diff 3 Months E78.5 - Hyperlipidemia, unspecified, I10 - Essential (primary) hypertension Lipid Panel 3 Months E78.5 - Hyperlipidemia, unspecified, I10 - Essential (primary) hypertension PSA,Total (Free>4and<10) 3 Months E78.5 - Hyperlipidemia, unspecified, I10 - Essential (primary) hypertension UA w Microscopic 3 Months I10 - Essential (primary) hypertension
== END 2024-06-22 12:52 | disposition home or self-care (01) ==
PROVIDERS: PCP Internal Medicine; Visit Provider Internal Medicine
DX: I10 Essential (primary) hypertension (principal); E78.5 Hyperlipidemia, unspecified

== ENCOUNTER → 2024-06-22 09:53 | Outpatient (BNVA) | payer BC, SELFPAY | PROVIDERS: PCP Internal Medicine; Visit Provider Internal Medicine ==

== ENCOUNTER 2024-10-26 09:48 | Outpatient (REF) | payer BC, SELFPAY ==
[2024-10-26 13:20] LABS: Basophils Absolute Auto 0.1 X10*3/uL (0.0-0.2); Basophils Percent Auto 0.6 % (0-2); Eosinophils Absolute Auto 0.4 X10*3/uL (0.0-0.4); Eosinophils Percent Auto 3.9 % (0-4); Hematocrit 52.2 % (42.0-52.0); Hemoglobin 17.4 g/dl (14.0-18.0); Imm Gran Abs Auto 0.04 X10*3/uL (0.00-0.03); Imm Gran Pct Auto 0.4 % (0.0-0.4); Lymphocytes Absolute Auto 3.4 X10*3/uL (1.2-4.9); Lymphocytes Percent Auto 34.1 % (20-40); MANUAL DIFF FLAG SCAN; Mean Corpuscular HGB Conc 33.3 g/dl (31.0-36.0); Mean Corpuscular Hemoglobin 28.3 pg (27.0-33.0); Mean Corpuscular Volume 84.9 fL (80.0-98.0); Monocytes Absolute Auto 0.5 X10*3/uL (0.1-1.2); Monocytes Percent Auto 5.3 % (2-11); Neutrophils Absolute Auto 5.5 x10*3/uL (2.0-8.3); Neutrophils Percent Auto 55.7 % (45-73); PLT CLUMP 1; Red Blood Count 6.15 X10*6/uL (4.60-5.80); Red Cell Distribution Width 13.8 % (11.0-16.0); SCAN SMEAR FLAG 1
[2024-10-26 13:47] LABS: Appearance Urine Clear; Color Urine Yellow; Glucose Urine UA Negative (Negative); Leukocyte Esterase Urine Negative (Negative); Nitrite Urine Negative (Negative); PH 6.5 (5.0-9.0); Specific Gravity - Urine 1.015 (1.005-1.025); Urine Blood Negative (Negative); Urine Ketones Negative (Negative); Urine Protein Negative (Neg-Trace)
[2024-10-26 13:51] LABS: Bacteria Urine None Seen (None Seen); RBC Urine 0-2 /HPF (0-2); Squamous Epithelial Cell Urine 0-2 /HPF (0-2); WBC Urine 0-5 /HPF (0-5)
[2024-10-26 13:54] LABS: Mean Platelet Volume 11.4 fL (9.4-12.4); Platelet Count 231 X10*3/uL (160-400); SLIDE REVIEW VERIFIED; White Blood Count 9.9 X10*3/uL (4.8-10.8)
[2024-10-26 14:01] LABS: PSA,Total (Free>4and<10) 0.18 ng/mL (0.00-4.00)
[2024-10-26 14:16] LABS: Alanine Aminotransferase 31 U/L (0-40); Albumin Level 4.7 g/dL (3.5-5.0); Anion Gap 13 (12-20); Aspartate Amino Transferase 30 U/L (5-37); Bilirubin Total 1.4 mg/dL (0.0-1.0); Blood Urea Nitrogen 21 mg/dL (9-16); Calcium 9.8 mg/dL (8.4-10.2); Carbon Dioxide 23 mmol/L (22-29); Chloride 106 mmol/L (96-108); Cholesterol 210 mg/dL (<200); Estimated Glomerular Filt Rate 53; Glucose Fasting 93 mg/dL (60-99); HDL Cholesterol 30 mg/dL (>40); LDL Cholesterol Calculated 120 mg/dL (<100); Potassium 4.2 mmol/L (3.3-5.1); Sodium 138 mmol/L (135-145); TSH reflex Free T4 0.47 uIU/mL (0.32-4.0); Total Protein 8.6 g/dL (6.5-8.0); Triglycerides 300 mg/dL (<150)
[2024-10-26 14:26] LABS: Alkaline Phosphatase 74 U/L (39-117)
== END 2024-10-26 09:49 | disposition home or self-care (01) ==
LOC: HO.HMGCLDS 09:48
PROVIDERS: PCP Internal Medicine; Visit Provider Internal Medicine
DX: I10 Essential (primary) hypertension (principal); E78.5 Hyperlipidemia, unspecified; Z12.5 Encounter for screening for malignant neoplasm of prostate
CPT/HCPCS: 36415; 80053; 80061; 81001; 84153; 84443; 85025

== ENCOUNTER 2024-10-27 16:32 | Emergency (ER) | payer OTHER, BC, SELFPAY ==
[2024-10-27 17:07] VITALS: BP 185/81; PULSE 70; RESP 20; TEMP 36.5; O2SAT 99; BMI 35.2
--- NOTE | 2024-10-27 17:09 | ED.GENADULT ---
HPI - General Adult General Chief complaint: Wound/Laceration Stated complaint: Chin lac at work Time Seen by Provider: 10/27/24 21:05 Source: patient Mode of arrival: ambulatory Limitations: no limitations History of Present Illness ED Provider: Dr. Lea Peng HPI narrative: Patient comes to the emergency room complaining of a laceration to the chin. Patient states that he hit his chin in a piece of machinery at work. Patient denies being on blood thinners, denies loss of consciousness, denies any other injuries. patient states that he does not know if he is up-to-date with his Tdap but states that he would prefer not to get his Tdap as he does not like needles. However, he has an appointment pending with his PCP in the next week, and he will talk with his PCP about getting his booster Related Data Previous Rx's ?Medication ?Instructions ?Recorded lisinopril 20 mg tablet 20 mg PO DAILY #90 tabs 09/16/23 amlodipine 5 mg tablet 5 mg PO DAILY #90 tabs 01/07/24 bisoprolol fumarate 10 mg tablet 10 mg PO DAILY #90 tabs 01/07/24 triamterene 50 mg capsule 50 mg PO DAILY #90 caps 01/14/24 lisinopril 20 1 tab PO DAILY #90 tabs 10/20/24 mg-hydrochlorothiazide 25 mg tablet pravastatin 20 mg tablet 20 mg PO DAILY #90 tabs 10/20/24 Allergies Allergy/AdvReac Type Severity Reaction Status Date / Time No Known Allergies Allergy Verified 10/27/24 17:10 Review of Systems Review of Systems: Constitutional : No Weight loss, No Fever, No Chills, No Night Sweats, No Fatigue, No Malaise ENT/Mouth : No Hearing loss, No Ear Pain, No Nasal Congestion, No Sinus Pain, No Hoarseness, No sore throat, No Rhinorrhea, No Swallowing Difficulty Eyes: No Eye Pain, No Swelling, No Redness, No Foreign Body, No Discharge, No Vision Changes Cardiovascular : No Chest Pain, No SOB, No Dyspnea on Exertion, No Orthopnea, No Edema, No Palpitations Respiratory : No Cough, No Sputum, No Wheezing, No Smoke Exposure, No Dyspnea Gastrointestinal : No Nausea, No Vomiting, No Diarrhea, No Constipation, No abdominal Pain, No Hematochezia, No Melena Genitourinary : no irregular bleeding, No Dysuria, No Urinary Frequency, No Hematuria, No Urinary Incontinence, No Urgency, No Flank Pain, No Urinary Flow Changes, No Hesitancy Musculoskeletal : No joint pain, No Myalgias, No Joint Swelling Skin : complaining of a laceration to the chin Neuro : No Weakness, No Numbness, No Paresthesias, No Loss of Consciousness, No Dizziness, No Headache Psych : No Anxiety/Panic, No Depression, No SI/HI/AH/VH, No Social Issues, Heme/Lymph: No Bruising, No Bleeding,No Lymphadenopathy Endocrine : No Polyuria, No Polydipsia, No Temperature Intolerance [facility] Past Medical History Medical History Colonoscopy refused Annual physical exam Hyperlipemia Knee pain HTN (hypertension) Nephrolithiasis Surgical History History of appendectomy Family History Family History Father HTN (hypertension) Mother HTN (hypertension) Social History Social History Housing: House Alcohol intake: current Alcohol intake frequency: holidays/special occasions only Patient Tobacco Use Status: Never used Tobacco e-Cigarette/Vaping Use: Never Used Advance Directives: No Advance Directives Information Provided: Yes Do you have a plan to hurt others: No Plan service: No Current occupational status: employed Cognitive needs: No Hearing needs: No Vision needs: No Physical Exam ED Vital Signs: Vital Signs - 24 hr 10/27/24 17:07 Temperature 97.7 F Pulse Rate 70 Respiratory Rate 20 Blood Pressure 185/81 H Pulse Oximetry 99 Oxygen Delivery Method Room Air BMI result Body Mass Index 35.2 Const Other: Appearance: Alert. Oriented X3. No acute distress. Eyes: Pupils equal, round and reactive to light. ENT: Pharynx normal. Neck: Normal inspection. Neck supple. No lymph nodes noted. No crepitus CVS: Normal heart rate and rhythm. Pulses normal. Normal S1 and S2 Respiratory: No respiratory distress. Breath sounds normal. No Wheezing. No rales Abdomen: Soft and nontender. No rigidity. No distention. Skin: there is a 3.5 horizontal laceration to the chin Extremities: No lower extremity edema. No Lacerations. No Rash Neuro: Oriented X 3. No motor deficit. No sensory deficit. Moving all extremities. No slurred speech. CN 2 through 12 grossly intact Psych: calm, cooperative, normal affect Course Course Course Narrative: This is a rapid medical exam performed by Marci Bauer PA-C. Patient is a 54-year-old male who presents with chin laceration. While at work, he lacerated his chin on a piece of equipment. Tetanus up-to-date. No indication for labs or imaging. He will require repair. The patient is stable and can return to the waiting room pending his full medical assessment. Medications Administered Discontinued Medications Generic Name Dose Route Start Last Admin Trade Name Shanti PRN Reason Stop Dose Admin Lidocaine HCl 10 ml 10/27/24 21:10 10/27/24 21:16 Lidocaine Hcl 1 % Mpf 5 Ml Vial INFILTRATI 10/27/24 21:11 10 ml ONCE ONE Administration Procedures Laceration Laceration 1: Site: face Description: linear Depth: simple, single layer Local Anesthetic: lidocaine 1% Amount of anesthesia used (mL): 5 Pre-repair: wound explored Skin layer closed with: nylon Size (cm): 5-0 Number of sutures: 5 Technique: simple, interrupted Discharge Plan Discharge Clinical Impression: Laceration Patient Disposition: Home, Self-Care Instructions: Facial Laceration (ED), Care For Your Stitches (ED) Additional Instructions: Your stitches need to be removed in 7-10 days. It can be done at your primary care physician's office, urgent care or in the emergency room. Please follow-up with your primary care physician tomorrow. If you have any worsening or new symptoms, please return to the emergency room or call 911 Prescriptions: No Action triamterene 50 mg capsule 50 mg PO DAILY Qty: 90 1RF pravastatin 20 mg tablet 20 mg PO DAILY Qty: 90 0RF lisinopril-hydrochlorothiazide 20-25 mg tablet 1 tab PO DAILY Qty: 90 0RF Rx Instructions: take with Lisinopril 20 mg lisinopril 20 mg tablet 20 mg PO DAILY Qty: 90 3RF Rx Instructions: Take with lisinopril with hydrochlorothiazide 20/25 amlodipine 5 mg tablet 5 mg PO DAILY Qty: 90 3RF bisoprolol fumarate 10 mg tablet 10 mg PO DAILY Qty: 90 2RF Print Language: Palestinian
[2024-10-27] MEDS: Lidocaine HCl 1 % MPF 5 ML VIAL 10 ML INFILTRATI (21:16)
[2024-10-27 21:49] VITALS: BP 187/92; PULSE 74; RESP 20; TEMP 36.4; O2SAT 98
== END 2024-10-27 21:50 | disposition home or self-care (01) ==
PROVIDERS: Emergency Provider Emergency Medicine; PCP Internal Medicine
DX: S01.81XA Laceration without foreign body of other part of head, initial encounter (principal); W31.9XXA Contact with unspecified machinery, initial encounter; Y93.9 Activity, unspecified; Y92.89 Other specified places as the place of occurrence of the external cause; Y99.0 Civilian activity done for income or pay
CPT/HCPCS: 12013; 99282; 99284; J2003

== ENCOUNTER 2024-10-28 09:05 | Outpatient (AMB) | payer BC, SELFPAY ==
[2024-10-28 09:07] VITALS: BP 136/78; PULSE 71; RESP 18; TEMP 36.7; O2SAT 98; BMI 35.0
--- NOTE | 2024-10-28 09:07 | A.OFFPC_ITS ---
Vital Signs 10/28/24 09:07 Height 5 ft 6 in Weight 217 lb BMI 35.0 BP 136/78 Blood Pressure Location Lt brachial Position Sitting Respiration 18 Pulse 71 Pulse Source Pulse Oximeter Temp 98.0 F Temp Source Oral Pulse Oximetry (%) 98 Oxygen Delivery Method Room Air Intake Visit Reasons: Annual PE Intake Note: Pt is here today for PE. Allergies No Known Allergies Allergy (Verified 10/28/24 09:09) Medication List - Last Reconciled 10/28/24 by Rowena Barnes MD amlodipine 5 mg PO DAILY amlodipine 10 mg PO DAILY bisoprolol fumarate 10 mg PO DAILY lisinopril 20 mg PO DAILY lisinopril-hydrochlorothiazide 20-25 mg 1 tab PO DAILY pravastatin 40 mg PO BEDTIME triamterene 50 mg PO DAILY Tobacco use date assessed: 10/28/24 Dental Screening Dental Screen Date: 10/28/24 Did you have a dental visit in the last 12 months?: Yes Did you have a dental problem in the last 6 months where you did not have access to dental care?: No Was dental information given to patient?: Patient has dentist HPI Annual PE HPI Details Pt presents for PE. PFSH Medical History Colonoscopy refused Annual physical exam Hyperlipemia Knee pain HTN (hypertension) Nephrolithiasis Surgical History History of appendectomy Family History Father HTN (hypertension) Mother HTN (hypertension) Social History Housing: House Alcohol intake: current Alcohol intake frequency: holidays/special occasions only Patient Tobacco Use Status: Never used Tobacco e-Cigarette/Vaping Use: Never Used service: No Current occupational status: employed Cognitive needs: No Hearing needs: No Vision needs: No Questionnaire PHQ-9 Over the last 2 weeks, how often have you been bothered by any of the following problems? 1. Little interest or pleasure in doing things: not at all 2. Feeling down, depressed, or hopeless: not at all 3. Trouble falling or staying asleep, or sleeping too much: not at all 4. Feeling tired or having little energy: not at all 5. Poor appetite or overeating: not at all 6. Feeling bad about yourself - or that you are a failure or have let yourself or your family down: not at all 7. Trouble concentrating on things, such as reading the newspaper or watching television: not at all 8. Moving or speaking so slowly that other people could have noticed. Or the opposite - being so fidgety or restless that you have been moving around a lot more than usual: not at all 9. Thoughts that you would be better off or of hurting yourself in some way: not at all Total score: 0 Depression Screening Interpretation: Negative Depression Screening Done: Yes 50149 - PHQ-9 Billing: Yes Source: Developed by Drs. Rocky Bocanegra, Tonie Valdovinos, Bryce Polanco and colleagues, with an educational hernandez from [employer]. Thrive Questionnaire Date Thrive assessed: 10/28/24 I am a: Patient What is your living situation today?: I have a steady place to live Within the past 12 months, did the food you bought not last and you didn't have the money to get more?: Never true Within the past 12 months, did you worry whether your food would run out before you got money to buy more?: Never true Do you have trouble paying for medicines?: No Do you have trouble getting transportation to medical appointments?: No Do you have trouble paying your heating and electricity bill?: No Do you have trouble taking care of your child, family member or friend?: No Do you have trouble with day-to-day activities such as bathing, preparing meals, shopping, managing finances, etc.?: No Are you currently unemployed and looking for a job?: No Are you interested in more education?: No Please select the resources that you would like help with: None THRIVE Score: 0 AUDIT C Alcohol Use Questionnaire (AUDIT-C) 1. How often do you have a drink containing alcohol?: Never 3. How often do you have six or more drinks on one occasion?: Never Total Score: 0 HUGO-7 AMB Questionnaire HUGO-7 Date HUGO - 7 assessed: 10/28/24 Feeling nervous, anxious, or on edge: 0 = Not at all Not being able to stop or control worryin = Not at all Worrying too much about different things: 0 = Not at all Trouble relaxin = Not at all Being so restless that it is hard to sit still: 0 = Not at all Becoming easily annoyed or irritable: 0 = Not at all Feeling afraid as if something awful might happen: 0 = Not at all Total HUGO-7 score (0-4 normal; 5-9 mild; 10-14 moderate; 15-21 severe): 0 Source: Developed by Drs. Rocky Bocanegra, Tonie Valdovinos, Bryce Polanco and colleagues, with an educational hernandez from [employer]. HUGO-7 Assessment Billing HUGO-7 Assessment Tool: HUGO-7 Assessment 08338 Review of Systems Const All systems reviewed & are unremarkable except as noted in HPI and below Eyes Reports no additional complaints ENT Reports no additional complaints Card Reports no additional complaints Resp Reports no additional complaints GI Reports no additional complaints Reports no additional complaints Physical exam (Primary Care) Vital Signs: Last Vital Signs Temp 98.0 F 10/28/24 09:07 Pulse 71 10/28/24 09:07 Resp 18 10/28/24 09:07 BP 136/78 10/28/24 09:07 Pulse Ox 98 10/28/24 09:07 Oxygen Delivery Method Room Air 10/28/24 09:07 BMI result Body Mass Index 35.0 Tobacco/Smoking Status: Tobacco use Status Tobacco use date assessed 10/28/24 10/28/24 09:10 Patient Tobacco Use Status Never used Tobacco 10/28/24 09:10 e-Cigarette/Vaping Use Never Used 10/28/24 09:10 PHQ-9: PHQ-9 Score PHQ-9: Total score 0 10/28/24 09:23 Depression Screening Interpretation: Negative Thrive Assessment: Date of Thrive Assessment Date Thrive assessed 10/28/24 10/28/24 09:10 Const General: no acute distress HENMT Head: Yes normal to inspection Ears: hearing grossly normal bilaterally Mouth: Normal oral and palatal mucosa present Throat: Yes posterior oropharynx normal Eyes General: appearance normal, both eyes and all related structures Neck Neck: Yes no lymphadenopathy and Yes supple Resp Effort & Inspection: normal respiratory effort Auscultation: clear to auscultation bilaterally Cardio Rhythm: regular rhythm Heart sounds: S1 normal heart sound present and S2 normal heart sound present GI Inspection: Yes normal to inspection Palpation (GI): Soft to palpation Percussion: Yes normal to percussion Auscultation: normal bowel sounds Coding Level of Care Code Est Pt Prev Care 40-64y(65616) Diagnoses HTN (hypertension) I10 Hyperlipemia E78.5 Annual physical exam Z00.00 Additional Codes HUGO-7 Assessment Billing - HUGO-7 Assessment Tool: HUGO-7 Assessment 80130 ([id number]) PHQ-9 - 59675 - PHQ-9 Billing: Yes ([id number]) Assessment & Plan Assessment & Plan (1) HTN (hypertension): Code(s): I10 - Essential (primary) hypertension Category: Medical Plan: Increase amlodipine to 10 mg a day continue other medications follow-up in 1 month (2) Hyperlipemia: Code(s): E78.5 - Hyperlipidemia, unspecified Category: Medical Plan: Increase pravastatin to 40 mg a day. Low-cholesterol diet discussed with the patient (3) Annual physical exam: Code(s): Z00.00 - Encounter for general adult medical examination without abnormal findings Category: Medical Plan: Well-balanced diet regular exercise discussed with the patient. He had a negative Cologuard in 2022 Orders: Orders Lipid Panel 1 Month E78.5 - Hyperlipidemia, unspecified, I10 - Essential (primary) hypertension Comprehensive [place]. Panel Fast 1 Month E78.5 - Hyperlipidemia, unspecified, I10 - Essential (primary) hypertension Medications: New amlodipine 10 mg PO DAILY 90 tabs 0RF pravastatin 40 mg PO BEDTIME 90 tabs 3RF Discontinued amlodipine Discontinued Reason: Doctor's Order 5 mg PO DAILY 90 tabs 3RF pravastatin Discontinued Reason: Doctor's Order 20 mg PO DAILY 90 tabs 0RF
== END 2024-10-28 10:08 | disposition home or self-care (01) ==
LOC: HO.HMCC 09:06
PROVIDERS: PCP Internal Medicine; Visit Provider Internal Medicine
DX: I10 Essential (primary) hypertension (principal); E78.5 Hyperlipidemia, unspecified; Z00.00 Encounter for general adult medical examination without abnormal findings

== ENCOUNTER → 2024-10-28 09:05 | Outpatient (BNVA) | payer BC, SELFPAY | PROVIDERS: PCP Internal Medicine; Visit Provider Internal Medicine | DX: Z00.00 Encounter for general adult medical examination without abnormal findings (principal); I10 Essential (primary) hypertension; E78.5 Hyperlipidemia, unspecified; Z79.899 Other long term (current) drug therapy | CPT/HCPCS: 96127 ==

== ENCOUNTER 2024-12-25 06:04 | Outpatient (REF) | payer BC, SELFPAY ==
[2024-12-25 10:55] LABS: Alanine Aminotransferase 43 U/L (0-40); Albumin Level 4.5 g/dL (3.5-5.0); Alkaline Phosphatase 57 U/L (39-117); Anion Gap 11 (12-20); Aspartate Amino Transferase 36 U/L (5-37); Bilirubin Total 1.5 mg/dL (0.0-1.0); Blood Urea Nitrogen 26 mg/dL (9-16); Calcium 9.4 mg/dL (8.4-10.2); Carbon Dioxide 24 mmol/L (22-29); Chloride 106 mmol/L (96-108); Cholesterol 149 mg/dL (<200); Estimated Glomerular Filt Rate 55; Glucose Fasting 102 mg/dL (60-99); HDL Cholesterol 30 mg/dL (>40); LDL Cholesterol Calculated 85 mg/dL (<100); Sodium 137 mmol/L (135-145); Total Protein 7.4 g/dL (6.5-8.0); Triglycerides 171 mg/dL (<150)
== END 2024-12-25 06:05 | disposition home or self-care (01) ==
LOC: HO.HMGCLDS 06:04
PROVIDERS: PCP Internal Medicine; Visit Provider Internal Medicine
DX: I10 Essential (primary) hypertension (principal); E78.5 Hyperlipidemia, unspecified
CPT/HCPCS: 36415; 80053; 80061

== ENCOUNTER 2024-12-28 12:41 | Outpatient (AMB) | payer BC, SELFPAY ==
[2024-12-28 13:22] VITALS: BP 128/76; PULSE 69; RESP 18; TEMP 36.7; O2SAT 99; BMI 34.7
--- NOTE | 2024-12-28 13:22 | MHC.PC.OV ---
Vital Signs 12/28/24 13:22 Height 5 ft 6 in Weight 215 lb BMI 34.7 BP 128/76 Blood Pressure Location Rt brachial Position Sitting Respiration 18 Pulse 69 Pulse Source Pulse Oximeter Temp 98.1 F Temp Source Oral Pulse Oximetry (%) 99 Oxygen Delivery Method Room Air Intake Visit Reasons: F/U Intake Note: Pt is here today for a follow up visit on BP and labs. Allergies No Known Allergies Allergy (Verified 12/28/24 13:30) Medication List - Last Reconciled 12/28/24 by Rowena Barnes MD amlodipine 10 mg PO DAILY bisoprolol fumarate 10 mg PO DAILY lisinopril 20 mg PO DAILY lisinopril-hydrochlorothiazide 20-25 mg 1 tab PO DAILY pravastatin 40 mg PO BEDTIME triamterene 50 mg PO DAILY Tobacco use date assessed: 12/28/24 Dental Screening Dental Screen Date: 10/28/24 HPI F/U HPI Details Patient presents for the follow-up on hypertension and hyperlipidemia stable on current medications PFSH Medical History Colonoscopy refused Annual physical exam Hyperlipemia Knee pain HTN (hypertension) Nephrolithiasis Surgical History History of appendectomy Family History Father HTN (hypertension) Mother HTN (hypertension) Social History Housing: House Alcohol intake: current Alcohol intake frequency: holidays/special occasions only Patient Tobacco Use Status: Never used Tobacco e-Cigarette/Vaping Use: Never Used service: No Current occupational status: employed Cognitive needs: No Hearing needs: No Vision needs: No Questionnaire Thrive Questionnaire Date Thrive assessed: 10/28/24 HUGO-7 AMB Questionnaire HUGO-7 Date HUGO - 7 assessed: 10/28/24 Source: Developed by Drs. Rocky Bocanegra, Tonie Valdovinos, Bryce Polanco and colleagues, with an educational hernandez from [employer] Review of Systems Const All systems reviewed & are unremarkable except as noted in HPI and below ENT Reports no additional complaints Card Reports no additional complaints Resp Reports no additional complaints GI Reports no additional complaints Reports no additional complaints Physical exam (Primary Care) Vital Signs: Last Vital Signs Temp 98.1 F 12/28/24 13:22 Pulse 69 12/28/24 13:22 Resp 18 12/28/24 13:22 BP 128/76 12/28/24 13:22 Pulse Ox 99 12/28/24 13:22 Oxygen Delivery Method Room Air 12/28/24 13:22 BMI result Body Mass Index 34.7 Tobacco/Smoking Status: Tobacco use Status Tobacco use date assessed 12/28/24 12/28/24 13:34 Patient Tobacco Use Status Never used Tobacco 12/28/24 13:23 e-Cigarette/Vaping Use Never Used 12/28/24 13:23 Thrive Assessment: Date of Thrive Assessment Date Thrive assessed 10/28/24 12/28/24 13:23 Const General: no acute distress HENMT Head: Yes normal to inspection Eyes General: appearance normal, both eyes and all related structures Resp Effort & Inspection: normal respiratory effort Auscultation: clear to auscultation bilaterally Cardio Rhythm: regular rhythm Heart sounds: S1 normal heart sound present and S2 normal heart sound present GI Inspection: Yes normal to inspection Palpation (GI): Soft to palpation Coding Level of Care Code Est Pt Level 4 (81739) Diagnoses HTN (hypertension) I10 Hyperlipemia E78.5 Assessment & Plan Assessment & Plan (1) HTN (hypertension): Code(s): I10 - Essential (primary) hypertension Category: Medical Plan: Continue current medications (2) Hyperlipemia: Code(s): E78.5 - Hyperlipidemia, unspecified Category: Medical Plan: Continue statin follow-up in 4 months with a fasting labs before Orders: Orders Comprehensive [place]. Panel Fast 4 Months E78.5 - Hyperlipidemia, unspecified, I10 - Essential (primary) hypertension Complete Blood Count Auto Diff 4 Months E78.5 - Hyperlipidemia, unspecified, I10 - Essential (primary) hypertension UA w Microscopic 4 Months I10 - Essential (primary) hypertension Lipid Panel 4 Months E78.5 - Hyperlipidemia, unspecified, I10 - Essential (primary) hypertension Hemoglobin A1c 4 Months E78.5 - Hyperlipidemia, unspecified, I10 - Essential (primary) hypertension
== END 2024-12-28 13:52 | disposition home or self-care (01) ==
LOC: HO.HMCC 12:42
PROVIDERS: PCP Internal Medicine; Visit Provider Internal Medicine
DX: I10 Essential (primary) hypertension (principal); E78.5 Hyperlipidemia, unspecified

== ENCOUNTER → 2024-12-28 12:41 | Outpatient (BNVA) | payer BC, SELFPAY | PROVIDERS: PCP Internal Medicine; Visit Provider Internal Medicine | DX: Z13.89 Encounter for screening for other disorder (principal) ==

== ENCOUNTER 2025-07-23 06:28 | Outpatient (REF) | payer BC, SELFPAY ==
[2025-07-23 10:11] LABS: MANUAL DIFF FLAG NO
[2025-07-23 10:22] LABS: Hematocrit 45.2 % (42.0-52.0); Hemoglobin 15.1 g/dl (14.0-18.0); Imm Gran Abs Auto 0.02 X10*3/uL (0.00-0.03); Imm Gran Pct Auto 0.2 % (0.0-0.4); Lymphocytes Absolute Auto 2.4 X10*3/uL (1.2-4.9); Mean Corpuscular HGB Conc 33.4 g/dl (31.0-36.0); Mean Corpuscular Hemoglobin 28.1 pg (27.0-33.0); Mean Corpuscular Volume 84.2 fL (80.0-98.0); NRBC Abs Auto 0.000 X10*3/uL (0.0-0.012); NRBC Pct Auto 0.0 /100WBC (0.0-0.2); Platelet Count 272 X10*3/uL (160-400); Red Blood Count 5.37 X10*6/uL (4.60-5.80); White Blood Count 8.5 X10*3/uL (4.8-10.8)
[2025-07-23 10:44] LABS: Alanine Aminotransferase 39 U/L (0-40); Albumin Level 4.7 g/dL (3.5-5.0); Alkaline Phosphatase 69 U/L (39-117); Anion Gap 8 (12-20); Aspartate Amino Transferase 32 U/L (5-37); Blood Urea Nitrogen 22 mg/dL (9-16); Calcium 9.4 mg/dL (8.4-10.2); Carbon Dioxide 26 mmol/L (22-29); Chloride 106 mmol/L (96-108); Cholesterol 185 mg/dL (<200); Estimated Glomerular Filt Rate > 60; HDL Cholesterol 34 mg/dL (>40); Potassium 3.8 mmol/L (3.3-5.1); Sodium 136 mmol/L (135-145); Total Protein 7.5 g/dL (6.5-8.0); Triglycerides 172 mg/dL (<150)
[2025-07-23 10:52] LABS: Appearance Urine Clear; Glucose Urine UA Negative (Negative); PH 7.5 (5.0-9.0); Specific Gravity - Urine 1.015 (1.005-1.025)
== END 2025-07-23 06:29 | disposition home or self-care (01) ==
LOC: HO.HMGCLDS 06:28
PROVIDERS: PCP Internal Medicine; Visit Provider Internal Medicine
DX: I10 Essential (primary) hypertension (principal); E78.5 Hyperlipidemia, unspecified; Z13.1 Encounter for screening for diabetes mellitus
CPT/HCPCS: 36415; 80053; 80061; 81001; 83036; 85025

== ENCOUNTER 2025-07-26 10:36 | Outpatient (AMB) | payer BC, SELFPAY ==
[2025-07-26 10:44] VITALS: BP 124/82; PULSE 69; RESP 17; TEMP 36.7; O2SAT 97; BMI 35.2
--- NOTE | 2025-07-26 10:44 | MHC.PC.OV ---
Vital Signs 07/26/25 10:44 Height 5 ft 6 in Weight 218 lb BMI 35.2 BP 124/82 Blood Pressure Location Rt brachial Position Sitting Respiration 17 Pulse 69 Pulse Source Pulse Oximeter Temp 98.0 F Temp Source Oral Pulse Oximetry (%) 97 Oxygen Delivery Method Room Air Intake Visit Reasons: Rescheduled from 06/28 Intake Note: Pt is here today for a follow up visit on labs. Allergies No Known Allergies Allergy (Verified 07/26/25 10:55) Medication List - Last Reconciled 07/26/25 by Rowena Barnes MD amlodipine 10 mg PO DAILY bisoprolol fumarate 10 mg PO DAILY lisinopril 20 mg PO DAILY lisinopril-hydrochlorothiazide 20-25 mg 1 tab PO DAILY pravastatin 40 mg PO BEDTIME triamterene 50 mg PO DAILY Tobacco use date assessed: 07/26/25 Dental Screening Dental Screen Date: 10/28/24 HPI Rescheduled from 06/28 HPI Details Pt presents for f/u HTN and hyperlipid, stable on meds. [facility] Medical History Colonoscopy refused Annual physical exam Hyperlipemia Knee pain HTN (hypertension) Nephrolithiasis Surgical History History of appendectomy Family History Father HTN (hypertension) Mother HTN (hypertension) Social History Housing: House Alcohol intake: current Alcohol intake frequency: holidays/special occasions only Patient Tobacco Use Status: Never used Tobacco e-Cigarette/Vaping Use: Never Used service: No Current occupational status: employed Cognitive needs: No Hearing needs: No Vision needs: No Questionnaire Thrive Questionnaire Date Thrive assessed: 10/28/24 HUGO-7 AMB Questionnaire HUGO-7 Date HUGO - 7 assessed: 10/28/24 Source: Developed by Drs. Rocky Bocanegra, Tonie Valdovinos, Bryce Polanco and colleagues, with an educational hernandez from [employer] Review of Systems Const All systems reviewed & are unremarkable except as noted in HPI and below Eyes Reports no additional complaints ENT Reports no additional complaints Card Reports no additional complaints Resp Reports no additional complaints Reports no additional complaints Physical exam (Primary Care) Vital Signs: Last Vital Signs Temp 98.0 F 07/26/25 10:44 Pulse 69 07/26/25 10:44 Resp 17 07/26/25 10:44 BP 124/82 07/26/25 10:44 Pulse Ox 97 07/26/25 10:44 Oxygen Delivery Method Room Air 07/26/25 10:44 BMI result Body Mass Index 35.2 Tobacco/Smoking Status: Tobacco use Status Tobacco use date assessed 07/26/25 07/26/25 10:55 Patient Tobacco Use Status Never used Tobacco 07/26/25 10:44 e-Cigarette/Vaping Use Never Used 07/26/25 10:44 Thrive Assessment: Date of Thrive Assessment Date Thrive assessed 10/28/24 07/26/25 10:44 Const General: no acute distress HENMT Face and sinus: Yes normal facial exam Resp Effort & Inspection: normal respiratory effort Auscultation: clear to auscultation bilaterally Cardio Rhythm: regular rhythm Heart sounds: S1 normal heart sound present and S2 normal heart sound present GI Inspection: Yes normal to inspection Palpation (GI): Soft to palpation Percussion: Yes normal to percussion Auscultation: normal bowel sounds Coding Level of Care Code Est Pt Level 4 (58201) Diagnoses HTN (hypertension) I10 Hyperlipemia E78.5 Hyperglycemia R73.9 Assessment & Plan Assessment & Plan (1) HTN (hypertension): Code(s): I10 - Essential (primary) hypertension Category: Medical Plan: Continue medications (2) Hyperlipemia: Code(s): E78.5 - Hyperlipidemia, unspecified Category: Medical Plan: cont statin (3) Hyperglycemia: Code(s): R73.9 - Hyperglycemia, unspecified Category: Medical Plan: A1c is 5.6, ADA diet increase exercise weight loss discussed with the patient Orders: Orders Comprehensive [place]. Panel Fast 3 Months E78.5 - Hyperlipidemia, unspecified, I10 - Essential (primary) hypertension, R73.9 - Hyperglycemia, unspecified Hemoglobin A1c 3 Months E78.5 - Hyperlipidemia, unspecified, I10 - Essential (primary) hypertension, R73.9 - Hyperglycemia, unspecified Lipid Panel 3 Months E78.5 - Hyperlipidemia, unspecified, I10 - Essential (primary) hypertension, R73.9 - Hyperglycemia, unspecified UA w Microscopic 3 Months E78.5 - Hyperlipidemia, unspecified, I10 - Essential (primary) hypertension, R73.9 - Hyperglycemia, unspecified PSA,Total (Free>4and<10) 3 Months E78.5 - Hyperlipidemia, unspecified, I10 - Essential (primary) hypertension, R73.9 - Hyperglycemia, unspecified Complete Blood Count Auto Diff 3 Months E78.5 - Hyperlipidemia, unspecified, I10 - Essential (primary) hypertension, R73.9 - Hyperglycemia, unspecified Microalbumin, Random (w Creat) 3 Months E78.5 - Hyperlipidemia, unspecified, I10 - Essential (primary) hypertension, R73.9 - Hyperglycemia, unspecified Medications: Refilled lisinopril Take with lisinopril with hydrochlorothiazide 20/25 20 mg PO DAILY 90 tabs 3RF triamterene 50 mg PO DAILY 90 caps 3RF lisinopril-hydrochlorothiazide 20-25 mg 1 tab PO DAILY 90 tabs 3RF bisoprolol fumarate 10 mg PO DAILY 90 tabs 3RF amlodipine 10 mg PO DAILY 90 tabs 3RF pravastatin 40 mg PO BEDTIME 90 tabs 3RF
== END 2025-07-26 11:31 | disposition home or self-care (01) ==
LOC: HO.HMCC 10:37
PROVIDERS: PCP Internal Medicine; Visit Provider Internal Medicine
DX: I10 Essential (primary) hypertension (principal); E78.5 Hyperlipidemia, unspecified; R73.9 Hyperglycemia, unspecified